=== PATIENT | female | born 1990 | race Hispanic/Latino ===

== ENCOUNTER → 2023-06-10 07:43 | Outpatient (REF) | payer BC, SELFPAY | LOC: PNTC 07:43 | PROVIDERS: ATTENDING PHYSICIAN Obstetrics & Gynecology | DX: O99.210 Obesity complicating pregnancy, unspecified trimester (principal) | CPT/HCPCS: 76816 ==

== ENCOUNTER → 2023-06-28 08:00 | Outpatient (REF) | payer BC, SELFPAY ==
--- NOTE | 2023-06-28 08:31 | PN.DIAED06 ---
Meal Plan - Gestational
- Breakfast
Gestational Diabetes Meal Plan Name: 1800 calories
Breakfast - Total Carbohydrate (grams): 30
Breakfast - Starch Carbohydrate: 1
Breakfast - Fruit Carbohydrate: 0
Breakfast - Milk Carbohydrate: 1
Breakfast - Nonstarchy Vegetables: Yes
Breakfast - Meat/Protein: 1
Breakfast - Fat: 2
- Morning Snack
Morning Snack - Total Carbohydrate (grams): 30
Morning Snack - Starch Carbohydrate: 1
Morning Snack - Fruit Carbohydrate: 0
Morning Snack - Milk Carbohydrate: 1
Morning Snack - Nonstarchy Vegetables: Yes
Morning Snack - Meat/Protein: 0.5
Morning Snack - Fat: 0
- Lunch
Lunch - Total Carbohydrate (grams): 45
Lunch - Starch Carbohydrate: 2
Lunch - Fruit Carbohydrate: 1
Lunch - Milk Carbohydrate: 0
Lunch - Nonstarchy Vegetables: Yes
Lunch - Meat/Protein: 2
Lunch - Fat: 1
- Afternoon Snack
Afternoon Snack - Total Carbohydrate (grams): 30
Afternoon Snack - Starch Carbohydrate: 1
Afternoon Snack - Fruit Carbohydrate: 1
Afternoon Snack - Milk Carbohydrate: 0
Afternoon Snack - Nonstarchy Vegetables: Yes
Afternoon Snack - Meat/Protein: 1
Afternoon Snack - Fat: 0
- Dinner
Dinner - Total Carbohydrate (grams): 45
Dinner - Starch Carbohydrate: 2
Dinner - Fruit Carbohydrate: 0
Dinner - Milk Carbohydrate: 1
Dinner - Nonstarchy Vegetables: Yes
Dinner - Meat/Protein: 2
Dinner - Fat: 2
- Evening Snack
Evening Snack - Total Carbohydrate (grams): 30
Evening Snack - Starch Carbohydrate: 1
Evening Snack - Fruit Carbohydrate: 0
Evening Snack - Milk Carbohydrate: 1
Evening Snack - Nonstarchy Vegetables: Yes
Evening Snack - Meat/Protein: 1
Evening Snack - Fat: 1
--- NOTE | 2023-06-28 10:31 | PN.DIAED02 ---
Referral
Referred For: Gestational Diabetes Self-Management Training
PHI Release Authorization Form Signed: Yes
Medical History of Diabetes
- Female Specific Medical History
Currently ?: Yes
Receiving care?: Yes
Estimated date of Confinement: 09/15/23
: 2
Para: 1
Care Plan
- Education Needs
Patient Education Needs: Preconception care//gestational diabetes management
Recommended Diabetes Training Program based on assessment: Gestational Diabetes Management
- Plan of Care
Plan of Care:
Lm in today for instructions on glucometer and nutrition for diagnosis of gestational diabetes. EDC 09/15/23, male. 2 yr old son at home.Discussed glucose metabolism and impact of on the process. Goal to keep BS well controlled to avoid
complications (macrosomia, hypoglycemia).Provided with and instructions given using [employer]. Lm states she has a high deductible and will have to pay for supplies out of pocket. Suggest she purchase a Reli-on glucometer from
[facility] for cost savings, information written on Gestational diabetes booklet for the supplies she will need. Good return demonstration with result of 90 mg/dl, 1 hr post breakfast. She is aware to call Ami at [facility] every Saturday
with results. Log sheets provided to record results. She has Ami's number. Discussed macronutrients and impact each place on blood sugar. Provided with 1800 marya ADA GDM meal plan. Reviewed current eating food choices. She needs to consume more CHO
as breakfast she had 2 hard boiled eggs, encouraged to add CHO (toast,bread,milk). Lunch she typically will have a salad w/spinach,radishes,cucumber. Will change to a sandwich (whole wheat bread)w/hummus,spinach,pepper,cucumber. will add fruit at
this time. Dinner consists of tortilla w/chicken, rice, peppers and roasted veggies or quinoa bowl w/chicken, veggies. She does drink milk, does not consume soda. handout on snack options given. She is aware to hold off consuming fruit/fruit juice
until noon time. Typically does not have a snack before bed, rationale given and okay to consume between 15-30 gm at that time. She does not exercise, suggest walking to prepare for delivery and help reduce blood sugars. She is aware that having GDM
put her at increase risk for developing T2DM. also aware to call our office in the event she requires insulin.
== END ==
LOC: DES 08:00
PROVIDERS: ATTENDING PHYSICIAN Obstetrics & Gynecology
DX: O24.419 Gestational diabetes mellitus in pregnancy, unspecified control (principal)
CPT/HCPCS: 99078

== ENCOUNTER 2023-07-14 22:24 | Observation (INO) | payer BC, SELFPAY ==
[2023-07-14 22:52] LABS: Hematocrit 34.7 % (37.0-47.0); Hemoglobin 11.9 g/dL (12.0-16.0); Mean Corp Hgb Conc. 34.3 g/dL (33.0-37.0); Mean Corpuscular Hgb 28.1 pg (27.0-31.0); Mean Corpuscular Volume 81.8 fL (81.0-99.0); Mean Platelet Volume 11.8 fL (7.4-10.4); Platelet Count 263 10^3/uL (130-400); Red Blood Cell Count 4.24 10^6/uL (4.20-5.40); Red Cell Dist. Width 15.1 % (11.5-14.5); White Blood Cell Count 9.4 10^3/uL (4.8-10.8)
[2023-07-14 23:03] VITALS: BMI 31.2
[2023-07-14 23:04] VITALS: BP 115/80
[2023-07-14 23:08] LABS: AST (SGOT) 515 U/L (14-36); Albumin 3.9 g/dl (3.5-5.0); Alkaline Phosphatase 237 U/L (38-126); Blood Urea Nitrogen 8 mg/dl (7-17); Calcium 10.5 mg/dl (8.4-10.2); Carbon Dioxide 20 mmol/L (22-30); Chloride 102 mmol/L (98-107); Estimated Creatinine Clearance 122 ml/min; Glucose 96 mg/dl (70-99); Potassium 4.2 mmol/L (3.5-5.1); Sodium 132 mmol/L (135-145); Total Bilirubin 1.2 mg/dl (0.2-1.3); Total Protein 7.6 g/dl (6.3-8.2); eGFR > 60.00
[2023-07-14] MEDS: ACTIGALL 300 MG PO (23:15)
[2023-07-14 23:21] LABS: ALT (SGPT) 1445 U/L (0-35)
[2023-07-15 04:42] LABS: Hepatitis B Surface Antigen Negative (Negative)
[2023-07-15 04:59] LABS: Hepatitis C Antibody Negative (Negative)
[2023-07-15 06:21] LABS: Glucose - Point of Care 85 mg/dl (70-99)
[2023-07-15 07:07] LABS: AST (SGOT) 479 U/L (14-36)
[2023-07-15 07:25] LABS: ALT (SGPT) 1323 U/L (0-35)
--- NOTE | 2023-07-15 08:48 | CON.GI ---
Addendum entered and electronically signed by Marina Erazo Do, MD 07/15/23 16:15:
I saw and examined the patient.
The RCP's note was reviewed and I agree with the note.
Comment: Lm is a 32yo gravid W with h/o cholestasis of who was admitted for rise in LFTs and diffuse body pruritus . No new meds or ETOH intake. Exam VSS no icterus or jaundice gravid abdomen. normal heart sounds, NTTP. Labs
during admission her LFTs were elevated. Acetaminophen neg. Ammonia and INR normal. Hep B and C neg.
Impression
- Elevated LFTs
Suspect cholestasis of
Neg hepatitis viral serologies
No new meds
- Liver lesion
hemangioma vs FNH
-
Recommendations
- Await rest of labs: NADIRA and mono test pending
- Serial LFTs currently slightly downtrending
- Results of MRI d/w. Recommend abd US 6mo post delivery for follow up of lesion
- C/w ursodiol TID and add OTC Sarna cream
- At this juncture ok from GI perspective for hosp d/c as asymptomatic. Weekly LFTs
Above d/w GRADUATE STUDENT/OB. Will sign off please call for questions
Original Note:
Consultation
-
Date/Time Consultation Requested: 07/15/23 0810
Date/Time Consultation Performed: 07/15/23 1040
Requesting Provider: Isamar Mera MD
Performing Provider: NAYE Mayen, Marina Carnes MD
Reason for Consultation: elevated LFT's
Medical History
Chief Complaint / HPI
Chief Complaint: itching
History of Present Illness:
Pt is a 32yo with hx prior with cholestasis of diagnosed at 36 weeks and delivery at 37 weeks. She now noted itchiness around 29 weeks and recent itching of feet and noted rise of LFT's. In 05/2021 bili <0.2, AST 15, ALT 24, alk
phos 127. Last week reported AST approximately 200, ALT 800 bili acid 69. Repeat labs on admission 07/13 with bili 1.2, AST 515, ALT 1445, Alk phos 237 then 07/14 AST 479, ALT 1323 and bile acid pending. hep Bs Ag neg and hep C neg. US completed
overnight with 2.4 cm echogenic hepatic mass likely hemangioma. No stones or bile duct dilation suspect 4 mm GB polyp.
In reviewing with patient she admits to itchiness, and actually has had 10 lbs wt loss since prepregnancy weight . She otherwise denies dysphagia, GERD, nausea, vomiting, abdominal pain, diarrhea, constipation, blood or black in stools. She did
notes slightly darker urine that cleared with drinking increased fluids. She denies ETOH or Tylenol use. Only medication use is vitamin and ferrous sulfate and newly added Ursodiol. Platelet, albumin normal. INR not completed.
hepatitis Bs Ag and hep C ab neg.
Past Medical History
Past Medical History: Other (hand, foot and mouth disease 2021 )
Past Surgical History: Gynecological (prior with vaginal delivery )
Social History
Tobacco: Non-Smoker
Alcohol: None
Drug: None
Personal:
Living: With Family
Family History
Family History: Other (no family hx liver or GI issues in family )
Allergies / Home Medications
Allergy/AdvReac Type Severity Reaction Status Date / Time
No Known Allergies Allergy Verified 07/14/23 23:12
�Medication �Instructions �Recorded
ferrous sulfate 325 mg (65 mg 325 mg PO QHS 07/14/23
iron) tablet (Iron (ferrous
sulfate))
prenat.vits,marya,zqf-vzfl-azoyz 1 tab PO QHS 07/14/23
Review of Systems
-
History Source: Patient
Constitutional: Reports Weight Loss (10 lbs since pre )
EENT: Reports No Symptoms
Respiratory: Reports No Symptoms
Cardiac: Reports No Symptoms
Skin: Reports Itching (not diffuse and on feet )
Vital Signs
Temp Pulse Resp BP
98.4 F 94 18 115/80
07/14/23 23:04 07/14/23 23:04 07/14/23 23:04 07/14/23 23:04
Physical Exam
Exam
General: Well Developed, Well Nourished and No Apparent Distress
HEENT: Normocephalic
Respiratory: Clear
Cardiac: Regular Rhythm
GI: Soft, Non Tender and Non Distended
Musculoskeletal: No Clubbing and No Cyanosis
Skin: Warm and Dry
Neuro: Awake, Alert and AO x 3
Psych: Calm
Results
WBC 9.4 10^3/uL (4.8-10.8) 07/14/23 22:44
Hgb 11.9 g/dL (12.0-16.0) L 07/14/23 22:44
Hct 34.7 % (37.0-47.0) L 07/14/23 22:44
MCV 81.8 fL (81.0-99.0) 07/14/23 22:44
Plt Count 263 10^3/uL (130-400) 07/14/23 22:44
Sodium 132 mmol/L (135-145) L 07/14/23 22:44
Potassium 4.2 mmol/L (3.5-5.1) 07/14/23 22:44
Chloride 102 mmol/L (98-107) 07/14/23 22:44
Carbon Dioxide 20 mmol/L (22-30) L 07/14/23 22:44
BUN 8 mg/dl (7-17) 07/14/23 22:44
Creatinine 0.3 mg/dL (0.6-1.0) L 07/14/23 22:44
Calcium 10.5 mg/dl (8.4-10.2) H 07/14/23 22:44
Total Bilirubin 1.2 mg/dl (0.2-1.3) 07/14/23 22:44
AST 479 U/L (14-36) H 07/15/23 06:18
ALT 1323 U/L (0-35) H* 07/15/23 06:18
Alkaline Phosphatase 237 U/L (38-126) H 07/14/23 22:44
Hepatitis C Antibody Negative (Negative) 07/14/23 22:44
Diagnostic Image Results:
07/15/23 US abdomen 2.4 cm echogenic hepatic mass likely hemangioma. no stones of bile duct dilation suspect 4 mm GB polyp.
Assessment / Plan
-
Pt is a 32yo with hx prior with cholestasis of diagnosed at 36 weeks and delivery at 37 weeks. She now noted itchiness around 29 weeks and recent itching of feet and noted rise of LFT's. In 05/2021 bili <0.2, AST 15, ALT 24, alk
phos 127. Last week reported AST approximately 200, ALT 800 bili acid 69. Repeat labs on admission 07/13 with bili 1.2, AST 515, ALT 1445, Alk phos 237 then 07/14 AST 479, ALT 1323 and bile acid pending. hep Bs Ag neg and hep C neg. US completed
overnight with 2.4 cm echogenic hepatic mass likely hemangioma. No stones or bile duct dilation suspect 4 mm GB polyp. She denies ETOH or Tylenol use. Only medication use is vitamin and ferrous sulfate and newly added Ursodiol.
Platelet, albumin normal. INR not completed. hepatitis Bs Ag and hep C ab neg.
-Pruritis
-increased LFT's mainly transaminase
-2.4 cm hepatic mass likely hemangioma
-gallbladder polyp
-hx cholestatis with 2021
-wt loss with
PLAN:
Etiology of elevated LFT's related to cholestasis of vs other (hepatitis, biliary obstruction, PBC, Drug induced liver injury(denies toxins), hemolysis, acute fatty liver, vs other in differential)
US as noted with liver lesion likely hemangioma
some trending down of LFT's since last PM
await bile acid level
will check remainder of hepatitis panel, INR, ammonia level, NADIRA, Tylenol level (though denies use)
check MRI without contrast-- reviewed with Dr. Reyna as ACOG guidelines gadolinium contrast for MRI should be limited
continue Tao
will review with dr. Carnes for any further recommendations
-
-
Thank you for consultation and allowing me to participate in the patient's care. Please call the transfer station operator GI physician during the after hours with any questions or concerns.
[2023-07-15] MEDS: ACTIGALL 300 MG PO (09:45)
[2023-07-15 12:17] LABS: Glucose - Point of Care 100 mg/dl (70-99)
[2023-07-15 15:14] LABS: INR 1.01; PT 13.1 Sec (11.4-14.6)
[2023-07-15 15:15] LABS: Ammonia < 9 umol/L (9-30)
[2023-07-15 15:17] LABS: Acetaminophen < 10 ug/ml (10-30)
[2023-07-15 15:34] LABS: Urine Albumin Negative (Neg - Trace); Urine Bilirubin Negative (Negative); Urine Character Clear (Clear); Urine Color Yellow; Urine Glucose Negative (Negative); Urine Ketone 3+ (Negative); Urine Leukocyte 1+ (Negative); Urine Nitrite Negative (Negative); Urine Occult Blood Negative (Negative); Urine Urobilinogen 1+ (Neg - 1+); Urine pH 6.5 (5.0-9.0)
[2023-07-15 15:49] LABS: Urine Bacteria Few (Negative); Urine Red Blood Cell 0-2 /HPF (0-2)
[2023-07-15 15:55] LABS: Protein/creatinine Ratio 0.2; Urine Protein 16 mg/dl
--- NOTE | 2023-07-15 16:19 | W.PN.UPDATE ---
Update Note
Progress Note Update
Billing purposes
[2023-07-15 16:41] LABS: Monotest Negative (Negative)
[2023-07-15 21:20] LABS: Hepatitis B Surface Antibody Negative
[2023-07-15 21:43] LABS: Hepatitis A Antibody, Total Positive (Negative)
[2023-07-16 13:53] LABS: Bile Acids (Cholylglycine) 35 umol/L (0-10)
[2023-07-16 15:13] LABS: Hepatitis B Core Ab, Total Negative (Negative)
[2023-07-16 16:49] LABS: Hepatitis A IgM Antibody Negative (Negative)
[2023-07-18 03:34] LABS: ANA, IgG Reflex to HEp-2 None Detected (None Detected)
== END 2023-07-15 15:36 | disposition home or self-care (01) ==
LOC: LDRP 22:24
PROVIDERS: Nurse Practitioner Adult Health; Obstetrics & Gynecology; ADMITTING PHYSICIAN Obstetrics & Gynecology; CONSULT PHYSICIAN Internal Medicine Gastroenterology
DX: O26.613 Liver and biliary tract disorders in pregnancy, third trimester (principal); K82.4 Cholesterolosis of gallbladder; R16.0 Hepatomegaly, not elsewhere classified; R79.89 Other specified abnormal findings of blood chemistry; O26.13 Low weight gain in pregnancy, third trimester; Z3A.31 31 weeks gestation of pregnancy
CPT/HCPCS: 74181; 76700; 76816; 80053; 80143; 81003; 81015; 82140; 82239; 82570; 82962; 84156; 84450; 84460; 85027; 85610; 86038; 86308; 86704; 86705; 86706; 86708; 86709; 86803; 86850; 86900; 86901; 87340; G0378

== ENCOUNTER → 2023-07-22 08:29 | Outpatient (REF) | payer BC, SELFPAY | LOC: PNTC 08:29 | PROVIDERS: ATTENDING PHYSICIAN Obstetrics & Gynecology | DX: O24.419 Gestational diabetes mellitus in pregnancy, unspecified control (principal); O99.210 Obesity complicating pregnancy, unspecified trimester | CPT/HCPCS: 59025; 76815 ==

== ENCOUNTER → 2023-07-29 08:17 | Outpatient (REF) | payer BC, SELFPAY | LOC: PNTC 08:17 | PROVIDERS: ATTENDING PHYSICIAN Obstetrics & Gynecology | DX: O26.613 Liver and biliary tract disorders in pregnancy, third trimester (principal); O99.210 Obesity complicating pregnancy, unspecified trimester; O24.419 Gestational diabetes mellitus in pregnancy, unspecified control | CPT/HCPCS: 59025; 76815 ==

== ENCOUNTER → 2023-08-05 08:18 | Outpatient (REF) | payer BC, SELFPAY | LOC: PNTC 08:18 | PROVIDERS: ATTENDING PHYSICIAN Obstetrics & Gynecology | DX: O26.649 Intrahepatic cholestasis of pregnancy, unspecified trimester (principal); O99.210 Obesity complicating pregnancy, unspecified trimester; O24.419 Gestational diabetes mellitus in pregnancy, unspecified control | CPT/HCPCS: 59025; 76816 ==

== ENCOUNTER → 2023-08-12 10:56 | Outpatient (REF) | payer BC, SELFPAY | LOC: PNTC 10:56 | PROVIDERS: ATTENDING PHYSICIAN Obstetrics & Gynecology | DX: O26.613 Liver and biliary tract disorders in pregnancy, third trimester (principal); O99.210 Obesity complicating pregnancy, unspecified trimester; O24.419 Gestational diabetes mellitus in pregnancy, unspecified control | CPT/HCPCS: 59025; 76815 ==

== ENCOUNTER → 2023-08-19 11:13 | Outpatient (REF) | payer BC, SELFPAY | LOC: PNTC 11:13 | PROVIDERS: ATTENDING PHYSICIAN Obstetrics & Gynecology | DX: O26.613 Liver and biliary tract disorders in pregnancy, third trimester (principal); O99.210 Obesity complicating pregnancy, unspecified trimester; O24.419 Gestational diabetes mellitus in pregnancy, unspecified control | CPT/HCPCS: 59025; 76816 ==

== ENCOUNTER 2023-08-26 19:41 | Inpatient (IN) | payer BC, SELFPAY ==
[2023-08-26 19:48] VITALS: BMI 31.4
[2023-08-26 19:58] VITALS: BP 119/73
[2023-08-26 20:24] LABS: % Basophils 0.4 % (0-2); % Immature Granulocytes 0.6 % (0-0.5); % Lymphocytes 17.9 % (20.5-51.1); % Neutrophils 74.1 % (42.2-75.2); Absolute Eosinophils 0.2 10^3/uL (0-0.7); Absolute Immature Granulocytes 0.1 10^3/uL (0-0.05); Absolute Lymphocytes 1.8 10^3/uL (1.2-3.4); Absolute Monocytes 0.5 10^3/uL (0.1-0.6); Absolute Neutrophils 7.4 10^3/uL (1.4-6.5); Hematocrit 34.5 % (37.0-47.0); Mean Corp Hgb Conc. 34.8 g/dL (33.0-37.0); Mean Corpuscular Hgb 28.6 pg (27.0-31.0); Mean Corpuscular Volume 82.1 fL (81.0-99.0); Mean Platelet Volume 12.1 fL (7.4-10.4); Nucleated Red Blood Cells % 0 %; Platelet Count 211 10^3/uL (130-400)
[2023-08-26 20:25] LABS: Glucose - Point of Care 109 mg/dl (70-99)
[2023-08-26] MEDS: CYTOTEC 50 MICROGRAM VAG (20:30)
[2023-08-26] MEDS: LR 1000 IV (21:56)
[2023-08-27] MEDS: CYTOTEC 50 MICROGRAM PO (01:11)
[2023-08-27] MEDS: CYTOTEC PO ×3 (06:06→15:44)
[2023-08-27 07:03] LABS: Glucose - Point of Care 87 mg/dl (70-99)
[2023-08-27] MEDS: PENICILLIN 110 UNITS IV (08:18)
[2023-08-27] MEDS: PITOCIN 30 UNITS/NSS 500 ML IV (09:16)
[2023-08-27 10:21] LABS: Glucose - Point of Care 75 mg/dl (70-99)
[2023-08-27] MEDS: LR 1000 IV (10:27)
[2023-08-27] MEDS: PENICILLIN 55 UNITS IV (11:57)
[2023-08-27] MEDS: SUBLIMAZE 100 MCG EPIDURAL (12:13)
[2023-08-27] MEDS: FENTANYL/BUPIVACAINE 100 EPIDURAL (12:13)
[2023-08-27 12:27] LABS: ALT (SGPT) 173 U/L (0-35); AST (SGOT) 67 U/L (14-36); Albumin 3.7 g/dl (3.5-5.0); Alkaline Phosphatase 226 U/L (38-126); Blood Urea Nitrogen 10 mg/dl (7-17); Calcium 10.1 mg/dl (8.4-10.2); Carbon Dioxide 18 mmol/L (22-30); Chloride 107 mmol/L (98-107); Estimated Creatinine Clearance 122 ml/min; Glucose 85 mg/dl (70-99); Sodium 134 mmol/L (135-145); Total Bilirubin 0.5 mg/dl (0.2-1.3); eGFR > 60.00
[2023-08-27] MEDS: FEOSOL PO (15:41)
[2023-08-27] MEDS: ACTIGALL 300 MG PO ×2 (16:39→21:57)
[2023-08-27] MEDS: MOTRIN 600 MG PO (20:12)
[2023-08-27] MEDS: PRENATAL PLUS 1 TABLET PO (21:57)
[2023-08-27] MEDS: FEOSOL 325 MG PO (21:57)
[2023-08-28 07:37] LABS: Hematocrit 35.5 % (37.0-47.0); Hemoglobin 12.2 g/dL (12.0-16.0)
[2023-08-28] MEDS: MOTRIN 600 MG PO ×2 (08:32→22:46)
[2023-08-28] MEDS: ACTIGALL 300 MG PO ×3 (08:32→22:42)
[2023-08-28 08:50] LABS: ALT (SGPT) 184 U/L (0-35); AST (SGOT) 74 U/L (14-36); Albumin 2.8 g/dl (3.5-5.0); Alkaline Phosphatase 176 U/L (38-126); Direct Bilirubin 0.2 mg/dl (0.0-0.4); Total Bilirubin 0.4 mg/dl (0.2-1.3); Total Protein 5.8 g/dl (6.3-8.2)
[2023-08-28] MEDS: FEOSOL 325 MG PO (22:42)
[2023-08-28] MEDS: PRENATAL PLUS 1 TABLET PO (22:43)
[2023-08-29 05:30] LABS: ALT (SGPT) 186 U/L (0-35); AST (SGOT) 64 U/L (14-36)
[2023-08-29] MEDS: ACTIGALL 300 MG PO (08:12)
[2023-08-30 13:18] LABS: Syphilis/T. pallidum Ab Reflex Negative (Negative)
== END 2023-08-29 12:53 | disposition home or self-care (01) | DRG 805 ==
LOC: LDRP 19:41
PROVIDERS: Obstetrics & Gynecology; ADMITTING PHYSICIAN Obstetrics & Gynecology; REFERRING PHYSICIAN Obstetrics & Gynecology
PROC: 3E0P7VZ Introduction of Hormone into Female Reproductive, Via Natural or Artificial Opening (ICD-10-PCS; 2023-08-27)
PROC: 10907ZC Drainage of Amniotic Fluid, Therapeutic from Products of Conception, Via Natural or Artificial Opening (ICD-10-PCS; 2023-08-27)
PROC: 10E0XZZ Delivery of Products of Conception, External Approach (ICD-10-PCS; 2023-08-27)
DX: O26.643 Intrahepatic cholestasis of pregnancy, third trimester (principal); K83.1 Obstruction of bile duct; Z37.0 Single live birth; O99.824 Streptococcus B carrier state complicating childbirth; O24.420 Gestational diabetes mellitus in childbirth, diet controlled; O69.81X0 Labor and delivery complicated by cord around neck, without compression, not applicable or unspecified; Z3A.37 37 weeks gestation of pregnancy
CPT/HCPCS: 88307; 36415; 80053; 80076; 82962; 84450; 84460; 85014; 85018; 85025; 86780; 86850; 86900; 86901